=== PATIENT | male | born 1960 | race American Indian/Alaskan Native ===

== ENCOUNTER 2016-08-26 09:32 | Emergency (ER) | payer BC ==
[2016-08-26 10:10] VITALS: BP 142/96
--- NOTE | 2016-08-26 11:40 | XRay Report ---
Right knee: Trauma, pain. Mild periarticular spurring is present predominantly affecting the medial knee joint space. The articular margins are smooth and aligned. The joint spaces are preserved. There is no effusion and no soft tissue swelling identified. The bones appear generally well mineralized. Impression: No acute findings.
--- NOTE | 2016-08-26 11:55 | Emergency Department Report ---
Entered by ADRIANNA LANGFORD, acting as scribe for SUSAN MURILLO NP. ED Lower Extremity HPI - General Chief Complaint: Extremity Injury, Lower Stated Complaint: RT KNEE PAIN Time Seen by Provider: 08/26/16 11:12 Source: patient Mode of arrival: Ambulatory Limitations: No Limitations - History of Present Illness Initial Comments: 56 y/o male with PMHx of HTN, presents to the ED c/o right knee pain that began a few weeks ago. Associated symptoms include stiffness and pulling sensation to inside of knee but he denies fever and chills. Pain is described as 7/10 on a severity scale. Patient states he noticed knee pain after running. Mild relief with joint/muscle cream and ibuprofen. No aggravating factors. Patient is ambulatory. Allergic to ciprofloxacin. MD Complaint: other (knee pain) -: Sudden, week(s) Injury: Knee: Right Place: home Severity: moderate Severity scale (0 -10): 7 Improves With: other (joint/muscle cream and ibuprofen mild relief) Worsens With: nothing Context: running Associated Symptoms: other (stiffness and pulling sensation to inside of knee, no fever and no chills) Treatments Prior to Arrival: other (joint/muscle cream and ibuprofen mild relief ) - Related Data Previous Rx's Medication Instructions Recorded Last Taken Type Capsaicin 42.5 gm TP TID PRN #1 tube 08/26/16 Unknown Rx Cyclobenzaprine [Flexeril] 10 mg PO TID PRN #30 tablet 08/26/16 Unknown Rx Naproxen [Naprosyn TAB] 500 mg PO BID PRN #60 tablet 08/26/16 Unknown Rx Allergies Allergy/AdvReac Type Severity Reaction Status Date / Time ciprofloxacin [From Cipro] AdvReac Itching Verified 08/26/16 10:02 ciprofloxacin HCl AdvReac Itching Verified 08/26/16 10:02 [From Cipro] ED Review of Systems Comment: All other systems reviewed and negative Constitutional: denies: chills, fever Eyes: denies: eye pain, eye discharge, vision change ENT: denies: ear pain, throat pain Respiratory: denies: cough, shortness of breath, wheezing Cardiovascular: denies: chest pain, palpitations Endocrine: no symptoms reported Gastrointestinal: denies: abdominal pain, nausea, diarrhea Genitourinary: denies: urgency, dysuria Musculoskeletal: other (right knee pain, stiffness and pulling sensation to inside of knee) Skin: denies: rash, lesions Neurological: denies: headache, weakness, paresthesias Psychiatric: denies: anxiety, depression Hematological/Lymphatic: denies: easy bleeding, easy bruising ED Past Medical Hx - Past Medical History Hx Hypertension: Yes Additional medical history: NERVE DAMAGE LEFT LOWER LEG. CHOLESTEROL - Surgical History Additional Surgical History: LEFT LEG S/P DOG ATTACK - Social History Smoking Status: Never Smoker Substance Use Type: Alcohol - Medications Home Medications: Home Medications Medication Instructions Recorded Confirmed Last Taken Type Capsaicin 42.5 gm TP TID PRN #1 tube 08/26/16 Unknown Rx Cyclobenzaprine [Flexeril] 10 mg PO TID PRN #30 tablet 08/26/16 Unknown Rx Naproxen [Naprosyn TAB] 500 mg PO BID PRN #60 tablet 08/26/16 Unknown Rx ED Physical Exam - General Limitations: No Limitations General appearance: alert, in no apparent distress - Head Head exam: Present: atraumatic, normocephalic, normal inspection - Eye Eye exam: Present: normal appearance, PERRL, EOMI Pupils: Present: normal accommodation - ENT ENT exam: Present: normal exam, normal orophraynx, mucous membranes moist, TM's normal bilaterally, normal external ear exam - Neck Neck exam: Present: normal inspection, full ROM. Absent: tenderness - Respiratory Respiratory exam: Present: normal lung sounds bilaterally. Absent: wheezes, rales, rhonchi - Cardiovascular Cardiovascular Exam: Present: regular rate, normal rhythm, normal heart sounds. Absent: systolic murmur, diastolic murmur, rubs, gallop - GI/Abdominal GI/Abdominal exam: Present: soft, normal bowel sounds. Absent: tenderness, guarding, rebound - Rectal Rectal exam: Present: deferred - Extremities Exam Extremities exam: Present: normal inspection, full ROM, normal capillary refill. Absent: tenderness, pedal edema, joint swelling, calf tenderness - Expanded Lower Extremity Exam Right Knee exam: Present: normal inspection, full ROM, tenderness (left medial to deep palpatino no ecchymosis), pain w/ pronation/supination (to medial right knee). Absent: swelling, abrasion, laceration, ecchymosis, deformity, crepidus , dislocation, erythema, effusion Lower Leg exam: Present: normal inspection Ankle exam: Present: normal inspection Foot/Toe exam: Present: normal inspection Neuro vascular tendon exam: Present: no vascular compromise. Absent: pulse deficit, abnormal cap refill, motor deficit, sensory deficit, tendon deficit, extremity cold to touch, pallor, abnormal 2-point discrimination, decreased fine /light touch, foot drop, peroneal nerve deficit, significant pain with passive ROM of distal joint Gait: Positive: observed and limited by pain - Back Exam Back exam: Present: normal inspection, full ROM. Absent: tenderness, CVA tenderness (R), CVA tenderness (L) - Neurological Exam Neurological exam: Present: alert, oriented X3 - Psychiatric Psychiatric exam: Present: normal affect, normal mood - Skin Skin exam: Present: warm, dry, intact, normal color. Absent: rash ED Course Vital Signs 08/26/16 10:05 Temperature 98.5 F Pulse Rate 70 Respiratory 15 Rate Blood Pressure 142/96 O2 Sat by Pulse 100 Oximetry ED Lower Extremity MDM - Radiology Data no fracture mild medial spurring chronic no soft tissue abnormality - Medical Decision Making pt is a 56 y/o aam with hx htn and chronic knee pain left who reports left knee pain exacerbation x 3 weeks after twisting injury in yard, there was no fall or trauma, pt remains ambulatory with minimal discomfort , pain is reported relieved to 2/10 by nsaids and nsaid rubs applied at home , pain is exacerbated by prolonged standing and walking, knee exam as noted no deformity no erythema no ecchymosis no drawer reproducible pain to external rotation no catch no click no pop, joint is stable , knee xray noted no acute finding , mild medial spurring, plan: kierra wrap prn, nsaids, muscle relaxant pt given knee exercises pt will follow up with primary care as directed, pt verbalized agreement and understanding with discharge. plan. ED Disposition Clinical Impression: Chronic pain of right knee Knee strain Qualifiers: Encounter type: initial encounter Laterality: right Qualified Code(s): S86.911A - Strain of unspecified muscle(s) and tendon(s) at lower leg level, right leg, initial encounter Disposition: TO HOME OR SELFCARE Is pt being admited?: No Does the pt Need Aspirin: No Condition: Good Instructions: Knee Pain (ED) Prescriptions: Capsaicin 42.5 gm TP TID PRN #1 tube PRN Reason: pain Cyclobenzaprine [Flexeril] 10 mg PO TID PRN #30 tablet PRN Reason: Muscle Spasm Naproxen [Naprosyn TAB] 500 mg PO BID PRN #60 tablet PRN Reason: Pain Referrals: PRIMARY CARE,MD [Primary Care Provider] - 3-5 Days Forms: Work/School Release Form(ED) Time of Disposition: 11:54 This documentation as recorded by the PRIM[employer] pace ELIZABETH,accurately reflects the service I personally performed and the decisions made by , SUSAN MURILLO, MARIO.
== END 2016-08-26 12:02 | disposition home or self-care (01) ==
LOC: ED 09:32
DX: S86.811A Strain of other muscle(s) and tendon(s) at lower leg level, right leg, initial encounter (principal); I10 Essential (primary) hypertension; Z88.1 Allergy status to other antibiotic agents; X58.XXXA Exposure to other specified factors, initial encounter; Y93.02 Activity, running; Y92.89 Other specified places as the place of occurrence of the external cause; Y99.8 Other external cause status
CPT/HCPCS: 99283

== ENCOUNTER 2017-03-26 06:46 | Emergency (ER) | payer BC ==
[2017-03-26 07:22] VITALS: BP 116/85
--- NOTE | 2017-03-26 10:43 | XRay Report ---
ROUTINE CHEST, TWO VIEWS: HISTORY: Cough. The trachea, heart, mediastinal contour, lung irving and bony thorax are unremarkable. IMPRESSION: Unremarkable chest x-ray.
[2017-03-26] MEDS ORDERED: MOTRIN PO ONE (11:46)
--- NOTE | 2017-03-26 12:00 | Emergency Department Report ---
- General Chief Complaint: Upper Respiratory Infection Stated Complaint: FLU SYMPTOMS Time Seen by Provider: 03/26/17 10:15 Source: patient Mode of arrival: Ambulatory Limitations: No Limitations - History of Present Illness Initial Comments: This is a 56-year-old male nontoxic, well nourished in appearance, no acute signs of distress presents to the ED with c/o of frontal sinus headache, rhinorrhea and nasal congestion 2 weeks. Patient stated he was just seen at an urgent care and was diagnosed with pharyngitis and was given over-the- counter treatment. Patient stated symptoms are getting worse. Patient denies chest pain, shortness of breath, fever, chills, nausea, vomiting, headache, stiff neck, numbness, tingling or abdominal pain. Patient denies any recent travels, long car rides, or recent hospital stays. Patient denies any calf pain , cough, or calf tenderness. Patient states allergies to ciprofloxacin. Past medical history includes hypertension. MD Complaint: rhinorrhea, nasal congestion, sinus pain -: week(s) (2) Severity: mild Severity scale (0 -10): 8 Quality: aching Consistency: constant Improves With: nothing Worsens With: nothing Associated Symptoms: headache (frontal sinus pain), rhinorrhea, nasal congestion. denies: fever, chills, myalgias, diaphoresis, sore throat, stiff neck, cough, chest pain, shortness of breath, abdominal pain, nausea, vomiting, diarrhea, dysuria, rash, confusion, right sweats, weight loss, epistaxis, hoarseness, ear pain Treatments Prior to Arrival: none - Related Data Previous Rx's Medication Instructions Recorded Last Taken Type Capsaicin 42.5 gm TP TID PRN #1 tube 08/26/16 Unknown Rx Cyclobenzaprine [Flexeril] 10 mg PO TID PRN #30 tablet 08/26/16 Unknown Rx Naproxen [Naprosyn TAB] 500 mg PO BID PRN #60 tablet 08/26/16 Unknown Rx Amoxicillin/K Clav Tab [Augmentin 1 tab PO Q12HR #20 tab 03/26/17 Unknown Rx 875 mg] Butalb/Acetamin/Caff 50-325-40 1 tab PO Q6HR PRN #20 tab 03/26/17 Unknown Rx [Fioricet] Allergies Allergy/AdvReac Type Severity Reaction Status Date / Time ciprofloxacin [From Cipro] AdvReac Itching Verified 08/26/16 10:02 ciprofloxacin HCl AdvReac Itching Verified 08/26/16 10:02 [From Cipro] ED Review of Systems ROS: Stated complaint: FLU SYMPTOMS Other details as noted in HPI Constitutional: denies: chills, fever Eyes: denies: eye pain, eye discharge, vision change ENT: denies: ear pain, throat pain Respiratory: denies: cough, shortness of breath, wheezing Cardiovascular: denies: chest pain, palpitations Endocrine: no symptoms reported Gastrointestinal: denies: abdominal pain, nausea, diarrhea Genitourinary: denies: urgency, dysuria Musculoskeletal: denies: back pain, joint swelling, arthralgia Skin: denies: rash, lesions Neurological: headache. denies: weakness, paresthesias Psychiatric: denies: anxiety, depression Hematological/Lymphatic: denies: easy bleeding, easy bruising ED Past Medical Hx - Past Medical History Previous Medical History?: Yes Hx Hypertension: Yes Additional medical history: NERVE DAMAGE LEFT LOWER LEG. CHOLESTEROL - Surgical History Past Surgical History?: Yes Additional Surgical History: LEFT LEG S/P DOG ATTACK - Social History Smoking Status: Never Smoker Substance Use Type: Alcohol, Prescribed - Medications Home Medications: Home Medications Medication Instructions Recorded Confirmed Last Taken Type Capsaicin 42.5 gm TP TID PRN #1 tube 08/26/16 Unknown Rx Cyclobenzaprine [Flexeril] 10 mg PO TID PRN #30 tablet 08/26/16 Unknown Rx Naproxen [Naprosyn TAB] 500 mg PO BID PRN #60 tablet 08/26/16 Unknown Rx Amoxicillin/K Clav Tab [Augmentin 1 tab PO Q12HR #20 tab 03/26/17 Unknown Rx 875 mg] Butalb/Acetamin/Caff 50-325-40 1 tab PO Q6HR PRN #20 tab 03/26/17 Unknown Rx [Fioricet] ED Physical Exam - General Limitations: No Limitations General appearance: alert, in no apparent distress - Head Head exam: Present: atraumatic, normocephalic, normal inspection - Eye Eye exam: Present: normal appearance, PERRL, EOMI. Absent: scleral icterus, conjunctival injection, nystagmus, periorbital swelling, periorbital tenderness Pupils: Present: normal accommodation - ENT ENT exam: Present: normal exam, normal orophraynx, mucous membranes moist, TM's normal bilaterally, normal external ear exam - Neck Neck exam: Present: normal inspection, full ROM. Absent: tenderness, meningismus, lymphadenopathy, thyromegaly - Respiratory Respiratory exam: Present: normal lung sounds bilaterally. Absent: respiratory distress, wheezes, rales, rhonchi, stridor, chest wall tenderness, accessory muscle use, decreased breath sounds, prolonged expiratory - Cardiovascular Cardiovascular Exam: Present: regular rate, normal rhythm, normal heart sounds. Absent: bradycardia, tachycardia, irregular rhythm, systolic murmur, diastolic murmur, rubs, gallop - GI/Abdominal GI/Abdominal exam: Present: soft, normal bowel sounds. Absent: distended, tenderness, guarding, rebound, rigid, diminished bowel sounds - Rectal Rectal exam: Present: deferred - Extremities Exam Extremities exam: Present: normal inspection, full ROM, normal capillary refill. Absent: tenderness, pedal edema, joint swelling, calf tenderness - Back Exam Back exam: Present: normal inspection, full ROM. Absent: tenderness, CVA tenderness (R), CVA tenderness (L), muscle spasm, paraspinal tenderness, vertebral tenderness, rash noted - Neurological Exam Neurological exam: Present: alert, oriented X3, CN II-XII intact, normal gait, reflexes normal - Psychiatric Psychiatric exam: Present: normal affect, normal mood - Skin Skin exam: Present: warm, dry, intact, normal color. Absent: rash - Other Other exam information: Positive frontal sinus tenderness ED Course Vital Signs 03/26/17 07:19 Temperature 98.4 F Pulse Rate 72 Respiratory 18 Rate Blood Pressure 116/85 O2 Sat by Pulse 98 Oximetry - Reevaluation(s) Reevaluation #1: 03/26/17 12:01 Patient is speaking in full sentences with no signs of distress noted. ED Medical Decision Making - Medical Decision Making This is a 56-year-old male that presents with sinusitis. Patient is stable and was examined by me. There is frontal sinus tenderness upon exam. Patient received Motrin 800 mg by mouth in the ED if symptoms aren't improving or subsided. I will treat patient with Augmentin at discharge due to worsening of symptoms. Patient was instructed Follow-up with a primary care doctor in 3-5 days or if symptoms worsen and continue return to emergency room as soon as possible. At time time of discharge, the patient does not seem toxic or ill in appearance. No acute signs of distress noted. Patient agrees to discharge treatment plan of care. No further questions noted by the patient. Critical care attestation.: If time is entered above; I have spent that time in minutes in the direct care of this critically ill patient, excluding procedure time. ED Disposition Clinical Impression: Sinusitis Qualifiers: Sinusitis location: frontal Chronicity: acute Recurrence: non-recurrent Qualified Code(s): J01.10 - Acute frontal sinusitis, unspecified Disposition: DC- TO HOME OR SELFCARE Is pt being admited?: No Does the pt Need Aspirin: No Condition: Stable Instructions: Sinusitis (ED), Amoxicillin/Clavulanate Potassium (By mouth), Butalbital/Aspirin/Caffeine (By mouth) Additional Instructions: Follow-up with a primary care doctor in 3-5 days or if symptoms worsen and continue return to emergency room as soon as possible. Prescriptions: Amoxicillin/K Clav Tab [Augmentin 875 mg] 1 tab PO Q12HR #20 tab Butalb/Acetamin/Caff 50-325-40 [Fioricet] 1 tab PO Q6HR PRN #20 tab PRN Reason: Headache Referrals: GERALDINE DIAS MD [Primary Care Provider] - 3-5 Days PRIMARY CAREMD [Referring] - 3-5 Days [facility] [place] [Outside] - 3-5 Days [facility] [Outside] - 3-5 Days Forms: Work/School Release Form(ED)
== END 2017-03-26 12:30 | disposition home or self-care (01) ==
LOC: ED 06:46
DX: J01.10 Acute frontal sinusitis, unspecified (principal); I10 Essential (primary) hypertension; Z88.1 Allergy status to other antibiotic agents
CPT/HCPCS: 71046; 87400; 99283

== ENCOUNTER 2018-07-09 04:30 | Emergency (ER) | payer BC, OTHER ==
[2018-07-09 04:43] VITALS: BP 141/95
[2018-07-09] MEDS ORDERED: TYLENOL #3 PO ONE (04:47)
[2018-07-09 05:10] LABS: Basophils # (Auto) 0.1 K/mm3 (0.0-0.1); Basophils % (Auto) 0.7 % (0.0-1.8); Eosinophils # (Auto) 0.1 K/mm3 (0.0-0.4); Eosinophils % (Auto) 0.7 % (0.0-4.3); Hematocrit 45.6 % (35.5-45.6); Hemoglobin 15.3 gm/dl (11.8-15.2); Lymphocytes # (Auto) 2.8 K/mm3 (1.2-5.4); Lymphocytes % (Auto) 27.6 % (13.4-35.0); Mean Corpuscular HGB Conc 34 % (32-34); Mean Corpuscular Volume 80 fl (84-94); Monocytes # (Auto) 1.2 K/mm3 (0.0-0.8); Monocytes % (Auto) 11.7 % (0.0-7.3); Platelet Count 240 K/mm3 (140-440)
[2018-07-09 05:17] LABS: INR 0.98 (0.87-1.13)
[2018-07-09 05:18] LABS: Partial Thromboplastin Time 30.8 Sec. (24.2-36.6)
[2018-07-09 05:27] LABS: Alanine Aminotransferase 31 units/L (7-56); Albumin 4.3 g/dL (3.9-5); BUN/Creatinine Ratio 11; Blood Urea Nitrogen 13 mg/dL (9-20); Calcium 8.8 mg/dL (8.4-10.2); Hemolysis Index 6
[2018-07-09] MEDS ORDERED: ZOFRAN ODT PO ONE (09:20)
[2018-07-09] MEDS ORDERED: NORCO 5/325 PO ONE (09:20)
--- NOTE | 2018-07-09 09:27 | Emergency Department Report ---
ED General Adult HPI - General Chief complaint: Extremity Problem,Nontraumatic Stated complaint: L LEG PAIN Time Seen by Provider: 07/09/18 09:09 Source: patient Mode of arrival: Ambulatory Limitations: No Limitations - History of Present Illness Initial comments: Patient presents to the emergency department with a chief complaint of left leg pain. Patient has a chronic history of left leg pain secondary to nerve damage from a severe dog bite that led to multiple reconstructive surgeries. Patient also complains of his left foot is swollen as well. -: Sudden Location: lower extremity Radiation: non-radiation Severity scale (0 -10): 7 Quality: burning, sharp Consistency: constant Improves with: none Worsens with: none Associated Symptoms: denies other symptoms Treatments Prior to Arrival: none - Related Data Previous Rx's Medication Instructions Recorded Last Taken Type Capsaicin 42.5 gm TP TID PRN #1 tube 08/26/16 Unknown Rx Cyclobenzaprine [Flexeril] 10 mg PO TID PRN #30 tablet 08/26/16 Unknown Rx Naproxen [Naprosyn TAB] 500 mg PO BID PRN #60 tablet 08/26/16 Unknown Rx Amoxicillin/K Clav Tab [Augmentin 1 tab PO Q12HR #20 tab 03/26/17 Unknown Rx 875 mg] Butalb/Acetamin/Caff 50-325-40 1 tab PO Q6HR PRN #20 tab 03/26/17 Unknown Rx [Fioricet] HYDROcodone/APAP 5-325 [Cooter 1 each PO Q6HR PRN #12 tablet 07/09/18 Unknown Rx 5/325] Allergies Allergy/AdvReac Type Severity Reaction Status Date / Time ciprofloxacin [From Cipro] AdvReac Itching Verified 08/26/16 10:02 ciprofloxacin HCl AdvReac Itching Verified 08/26/16 10:02 [From Cipro] ED Review of Systems ROS: Stated complaint: L LEG PAIN Other details as noted in HPI Comment: All other systems reviewed and negative Constitutional: denies: chills, fever Eyes: denies: eye pain, eye discharge, vision change ENT: denies: ear pain, throat pain Respiratory: denies: cough, shortness of breath, wheezing Cardiovascular: denies: chest pain, palpitations Endocrine: no symptoms reported Gastrointestinal: denies: abdominal pain, nausea, diarrhea Genitourinary: denies: urgency, dysuria Musculoskeletal: denies: back pain, joint swelling, arthralgia Skin: denies: rash, lesions Neurological: denies: headache, weakness, paresthesias Psychiatric: denies: anxiety, depression Hematological/Lymphatic: denies: easy bleeding, easy bruising ED Past Medical Hx - Past Medical History Previous Medical History?: Yes Hx Hypertension: Yes Additional medical history: NERVE DAMAGE LEFT LOWER LEG. CHOLESTEROL - Surgical History Past Surgical History?: Yes Additional Surgical History: LEFT LEG S/P DOG ATTACK, Tonsillectomy - Social History Smoking Status: Never Smoker Substance Use Type: None - Medications Home Medications: Home Medications Medication Instructions Recorded Confirmed Last Taken Type Capsaicin 42.5 gm TP TID PRN #1 tube 08/26/16 Unknown Rx Cyclobenzaprine [Flexeril] 10 mg PO TID PRN #30 tablet 08/26/16 Unknown Rx Naproxen [Naprosyn TAB] 500 mg PO BID PRN #60 tablet 08/26/16 Unknown Rx Amoxicillin/K Clav Tab [Augmentin 1 tab PO Q12HR #20 tab 03/26/17 Unknown Rx 875 mg] Butalb/Acetamin/Caff 50-325-40 1 tab PO Q6HR PRN #20 tab 03/26/17 Unknown Rx [Fioricet] HYDROcodone/APAP 5-325 [Cooter 1 each PO Q6HR PRN #12 tablet 07/09/18 Unknown Rx 5/325] ED Physical Exam - General Limitations: No Limitations General appearance: alert, in no apparent distress - Head Head exam: Present: atraumatic, normocephalic - Eye Eye exam: Present: normal appearance, PERRL, EOMI - ENT ENT exam: Present: mucous membranes moist - Neck Neck exam: Present: normal inspection - Respiratory Respiratory exam: Present: normal lung sounds bilaterally. Absent: respiratory distress - Cardiovascular Cardiovascular Exam: Present: regular rate, normal rhythm. Absent: systolic murmur, diastolic murmur, rubs, gallop - GI/Abdominal GI/Abdominal exam: Present: soft, normal bowel sounds. Absent: distended, tenderness - Rectal Rectal exam: Present: deferred - Extremities Exam Extremities exam: Present: other (patient has good posterior tibialis and dorsalis pedis pulses left foot; is diffuse swelling of the left foot with warmth to touch without erythema) - Back Exam Back exam: Present: normal inspection - Neurological Exam Neurological exam: Present: alert, oriented X3, CN II-XII intact. Absent: motor sensory deficit - Psychiatric Psychiatric exam: Present: normal affect, normal mood - Skin Skin exam: Present: warm, dry, intact, normal color. Absent: rash ED Course Vital Signs 07/09/18 04:34 Temperature 98.9 F Pulse Rate 93 H Respiratory 18 Rate Blood Pressure 141/95 O2 Sat by Pulse 97 Oximetry ED Medical Decision Making - Lab Data Result diagrams: 07/09/18 04:51 07/09/18 04:51 Lab Results 07/09/18 07/09/18 07/09/18 Range/Units 04:51 04:51 04:51 WBC 10.2 (4.5-11.0) K/mm3 RBC 5.70 H (3.65-5.03) M/mm3 Hgb 15.3 H (11.8-15.2) gm/dl Hct 45.6 (35.5-45.6) % MCV 80 L (84-94) fl MCH 27 L (28-32) pg MCHC 34 (32-34) % RDW 16.0 H (13.2-15.2) % Plt Count 240 (140-440) K/mm3 Lymph % (Auto) 27.6 (13.4-35.0) % [place] % (Auto) 11.7 H (0.0-7.3) % Eos % (Auto) 0.7 (0.0-4.3) % Baso % (Auto) 0.7 (0.0-1.8) % Lymph # 2.8 (1.2-5.4) K/mm3 [place] # 1.2 H (0.0-0.8) K/mm3 Eos # 0.1 (0.0-0.4) K/mm3 Baso # 0.1 (0.0-0.1) K/mm3 Seg Neutrophils % 59.3 (40.0-70.0) % Seg Neutrophils # 6.1 (1.8-7.7) K/mm3 PT 13.6 (12.2-14.9) Sec. INR 0.98 (0.87-1.13) APTT 30.8 (24.2-36.6) Sec. Sodium 140 (137-145) mmol/L Potassium 3.2 L (3.6-5.0) mmol/L Chloride 98.9 (98-107) mmol/L Carbon Dioxide 25 (22-30) mmol/L Anion Gap 19 mmol/L BUN 13 (9-20) mg/dL Creatinine 1.2 (0.8-1.5) mg/dL Estimated GFR > 60 ml/min BUN/Creatinine Ratio 11 % Glucose 125 H (75-100) mg/dL Calcium 8.8 (8.4-10.2) mg/dL Total Bilirubin 0.60 (0.1-1.2) mg/dL AST 18 (5-40) units/L ALT 31 (7-56) units/L Alkaline Phosphatase 51 (35-129) units/L NT-Pro-B Natriuret Pep (0-900) pg/mL Total Protein 7.6 (6.3-8.2) g/dL Albumin 4.3 (3.9-5) g/dL Albumin/Globulin Ratio 1.3 % /08/22 Range/Units 04:51 WBC (4.5-11.0) K/mm3 RBC (3.65-5.03) M/mm3 Hgb (11.8-15.2) gm/dl Hct (35.5-45.6) % MCV (84-94) fl MCH (28-32) pg MCHC (32-34) % RDW (13.2-15.2) % Plt Count (140-440) K/mm3 Lymph % (Auto) (13.4-35.0) % [place] % (Auto) (0.0-7.3) % Eos % (Auto) (0.0-4.3) % Baso % (Auto) (0.0-1.8) % Lymph # (1.2-5.4) K/mm3 [place] # (0.0-0.8) K/mm3 Eos # (0.0-0.4) K/mm3 Baso # (0.0-0.1) K/mm3 Seg Neutrophils % (40.0-70.0) % Seg Neutrophils # (1.8-7.7) K/mm3 PT (12.2-14.9) Sec. INR (0.87-1.13) APTT (24.2-36.6) Sec. Sodium (137-145) mmol/L Potassium (3.6-5.0) mmol/L Chloride (98-107) mmol/L Carbon Dioxide (22-30) mmol/L Anion Gap mmol/L BUN (9-20) mg/dL Creatinine (0.8-1.5) mg/dL Estimated GFR ml/min BUN/Creatinine Ratio % Glucose (75-100) mg/dL Calcium (8.4-10.2) mg/dL Total Bilirubin (0.1-1.2) mg/dL AST (5-40) units/L ALT (7-56) units/L Alkaline Phosphatase (35-129) units/L NT-Pro-B Natriuret Pep 29.28 (0-900) pg/mL Total Protein (6.3-8.2) g/dL Albumin (3.9-5) g/dL Albumin/Globulin Ratio % [place] - Radiology Data Radiology results: report reviewed - Medical Decision Making Discussed results with patient Patient instructed to keep leg elevated Critical care attestation.: If time is entered above; I have spent that time in minutes in the direct care of this critically ill patient, excluding procedure time. ED Disposition Clinical Impression: Leg pain, Pedal edema Disposition: TO HOME OR SELFCARE Is pt being admited?: No Does the pt Need Aspirin: No Condition: Stable Instructions: Leg Edema (ED) Additional Instructions: return if worse Prescriptions: HYDROcodone/APAP 5-325 [Cooter 5/325] 1 each PO Q6HR PRN #12 tablet PRN Reason: Pain Referrals: PRIMARY CARE, [Primary Care Provider] - 3-5 Days [facility] [Provider Group] - 3-5 Days [facility] [Provider Group] - 3-5 Days Time of Disposition: 11:49
--- NOTE | 2018-07-09 10:17 | Vascular Lab Report ---
PROCEDURE: VL VENOUS DUPLEX LE LT TECHNIQUE: Rose scale, color and pulsed Doppler ultrasound with color flow and spectral analysis eval uation of left lower extremity was performed to assess for deep vein thrombosis. HISTORY: pain COMPARISONS: None currently available. FINDINGS: LEFT extremity: There is normal grayscale appearance and compressibility. Normal phasic pulsed Doppler and normal col or Doppler flow are visualized. The interrogated vessels show normal augmentation. IMPRESSION: * No evidence for DVT. This document is electronically signed by Willard Miranda MD., Jul 09 2018 10:14:20 AM ET
[2018-07-09] MEDS ORDERED: PERCOCET 5/325 PO ONE (11:40)
[2018-07-09] MEDS ORDERED: PERCOCET 5/325 ONE (11:42)
== END 2018-07-09 12:00 | disposition home or self-care (01) ==
LOC: ED 04:30
DX: R60.0 Localized edema (principal); Z88.1 Allergy status to other antibiotic agents; I10 Essential (primary) hypertension; Z90.49 Acquired absence of other specified parts of digestive tract
CPT/HCPCS: 36415; 80053; 83880; 85025; 85610; 85730; Q0162